=== PATIENT | female | born 1995 | race Caucasian/White ===

== ENCOUNTER → 2018-04-20 11:15 | Outpatient (CLI) | payer OTHER, SELFPAY ==
[2018-04-20 12:52] LABS: Internal QC Validated? YES +Cl - CLEAR BKGD; Monotest Negative (Negative); Record Kit Lot#, Mono 13171517
== END ==
PROVIDERS: Family Provider Student in an Organized Health Care Education/Training Program; PCP Student in an Organized Health Care Education/Training Program; Visit Provider Otolaryngology Otolaryngology/Facial Plastic Surgery
DX: J03.90 Acute tonsillitis, unspecified (principal)
CPT/HCPCS: 36415; 86308

== ENCOUNTER 2019-07-11 18:26 | Emergency (ER) | payer MEDICAID, SELFPAY ==
[2019-07-11 18:27] VITALS: BP 164/93; PULSE 99; RESP 16; TEMP 36.7; O2SAT 99; BMI 49.1
--- NOTE | 2019-07-11 18:29 | RAD_ITS ---
STUDY: X-RAY - RIGHT SHOULDER REASON FOR EXAM: Female, 24 years old. Pain TECHNIQUE: 4 view(s) of the shoulder. COMPARISON: None. FINDINGS: No acute fracture, dislocation or osseous destruction. No significant joint space narrowing. No significant productive changes. No significant soft tissue swelling. IMPRESSION: No acute fracture or dislocation right shoulder. Electronically Signed: Claude De La Cruz, at 19:07 EST Tel , Service support , RAD/Shoulder min 2 Views
--- NOTE | 2019-07-11 21:15 | ED.VIS.UPPEX ---
History of Present Illness Chief Complaint: Upper Extremity Injury Informant: Patient Occurred: Today - 4 hrs ago Mechanism/Context: Work Related Context: Sudden Onset Quality of Pain: Aching Location: posterior right shoulder/back Current Severity: Mild Maximum Severity: Moderate Worsened by: movement Relieved by: rest Associated Symptoms: Parasthesia. 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 She was doing a headache park today when she suddenly felt sharp pains in her right posterior back/trapezius/rhomboids area, and felt numbness all the way down her right arm into her hand. As time went on the numbness improved and is still present but much better than it was. It is in all of her fingers. She has had no weakness, has not dropped anything, she denies any direct trauma or other injury. No neck pain. No problems with her leg or anything on the left side. Prior similar symptoms: No Past Medical History - Allergies and Home Meds Allergies/Adverse Reactions: Allergies sulfamethoxazole [From Bactrim] Adverse Reaction (Verified 08/06/15 20:43) Nausea trimethoprim [From Bactrim] Adverse Reaction (Verified 08/06/15 20:43) Nausea Primary Care Physician: Felix Randall DO [Primary Care Provider] - Past Medical History: None Lives: With Family Smoking Status: Current every day smoker Review of Systems Musculoskeletal: Reports: Back pain, Extremity Pain. Denies: Neck pain, Swelling Neurological: Reports: Parasthesia. Denies: Headache, Weakness Physical Exam Vital Signs/Narrative: Vital Signs Temp Pulse Resp BP Pulse Ox 07/11/19 18:27 98.1 F 99 16 164/93 H 99 General: Well nourished, Well developed, - - Appearing, NAD Head: Normocephalic, Atraumatic Neck: Nontender, Full ROM Back: Paraspinal Tenderness - Right upper trapezius and rhomboids. No bony tenderness.. Negative for: Spinal Tenderness Skin: Normal color, No rash, No Trauma Neurological: Alert, Oriented x3, Cranial nerves II-XII grossly intact, Normal Strength - Including right upper extremity axillary, radial, median, ulnar nerves, including AIN/PIN branches., Normal Gait, Parasthesia - Throughout right hand. Normal cap refill. 2+/4 radial pulse. Psychological: Normal affect, Normal Mood Diagnostic/Tx/Re-eval - Medical Decision Making 4 view x-ray series of the right shoulder is interpreted by radiology as negative for any acute abnormality. She likely has a neuropraxia, I suspect his symptoms will resolve, in addition to a strain of the right trapezius. The etiology is either in her neck or her brachial plexus, I am not able to localize it since she has all fingers affected. She is given lifting restrictions and advised to follow-up with [facility]. ED Disposition - Plan for ED Patient: Disposition: Home or Assisted Living Diagnosis: Strain of right trapezius muscle, Neurapraxia of right upper extremity Instructions: Thoracic Strain, NEUROPATHY, Peripheral Referrals: [facility]YSICIANS] - (call for appt to be seen in 1-5 days ) Felix Randall, [Primary Care Provider] -
[2019-07-11 21:29] VITALS: RESP 14
[2019-07-11] MEDS: Naproxen 500 MG Tablet PO (21:29)
== END 2019-07-11 21:30 | disposition home or self-care (01) ==
LOC: ED 21:17
PROVIDERS: Emergency Provider Emergency Medicine; Family Provider Student in an Organized Health Care Education/Training Program; PCP Student in an Organized Health Care Education/Training Program
DX: S29.012A Strain of muscle and tendon of back wall of thorax, initial encounter (principal); S44.91XA Injury of unspecified nerve at shoulder and upper arm level, right arm, initial encounter; X50.0XXA Overexertion from strenuous movement or load, initial encounter; Y93.9 Activity, unspecified; Y92.63 Factory as the place of occurrence of the external cause; Y99.0 Civilian activity done for income or pay; F17.200 Nicotine dependence, unspecified, uncomplicated; Z88.1 Allergy status to other antibiotic agents; Z88.2 Allergy status to sulfonamides
CPT/HCPCS: 73030; 99283

== ENCOUNTER 2020-04-16 11:49 | Emergency (ER) | payer MEDICAID, SELFPAY ==
[2020-04-16 11:51] VITALS: BP 154/95; PULSE 98; RESP 16; TEMP 36.8; O2SAT 100; BMI 50.5
--- NOTE | 2020-04-16 12:07 | ED.DCSUM_ITS ---
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 She has had no known contact with persons affected with COVID-19, nor has she been diagnosed with it. She started with myalgias several days ago, then developed chills, sore throat with odynophagia, and feels malaise. She has a nonproductive cough that is mild. No dyspnea. Recent Illness/Hospitalization: No Past Medical History - Allergies and Home Meds Allergies/Adverse Reactions: Allergies sulfamethoxazole [From Bactrim] Adverse Reaction (Verified 04/16/20 11:51) Nausea trimethoprim [From Bactrim] Adverse Reaction (Verified 04/16/20 11:51) Nausea Primary Care Physician: Felix Randall DO [Primary Care Provider] - Past Medical History: None Smoking Status: Never smoker Review of Systems General: Reports: Chills, Malaise. Denies: Fever, Sweats Eyes: Denies: Visual changes - bilaterally, Diplopia ENT: Reports: Sore throat. Denies: Bilateral ear pain, Rhinorrhea Cardiovascular: Denies: Chest pain, Palpitations Respiratory: Reports: Cough. Denies: Dyspnea, Sputum, Dyspnea on exertion, Orthopnea Gastrointestinal: Denies: Abdominal pain, Nausea, Vomiting, Diarrhea, Melena, Hematochezia Genitourinary: Denies: Dysuria, Hematuria, Frequency Musculoskeletal: Reports: Myalgias, Neck pain - anterior. Denies: Back pain, Swelling Skin: Denies: Rash, Wounds Neurological: Denies: Headache, Weakness, Numbness Physical Exam Vital Signs/Narrative: Vital Signs Temp Pulse Resp BP Pulse Ox 04/16/20 11:51 98.2 F 98 16 154/95 H 100 Inital Vital Signs reviewed: Yes General: Well nourished, Well developed, Obese, - - well-appearing, nad Head: Normocephalic, Atraumatic Eyes: Perrl, EOMI Nose: Normal Inspection, No Rhinorrhea. Negative for: Purulent Drainage Mouth/Throat: Airway Patent, Posterior Oropharyngeal Erythema Tonsils: Right Tonsilar Erythema, Left Tonsilar Erythema. Negative for: Right Tonsilar Exudates, Left Tonsilar Exudates, Right Tonsilar Swelling, Left Tonsilar Swelling Neck: Supple, No Meningismus, Anterior Lymphadenopathy. Negative for: Posterior Lymphadenopathy Cardiovascular: Regular rate, Regular rhythm, No murmurs. Negative for: Tachyca rdia Respiratory: No distress, CTA bilaterally, Chest nontender Extremities: Nontender, No edema Skin: Normal color, No rash, No Trauma Neurological: Alert, Oriented x3, Cranial nerves II-XII grossly intact, Normal Strength, Normal Sensation, Normal Gait Psychological: Normal affect, Normal Mood Diagnostic/Tx/Re-eval - Medical Decision Making Rapid strep was sent and is negative. Culture is sent, I also sent an outpa tient COVID-19 swab. Her vital signs are normal and she is not hypoxic or need of inpatient or further work-up, so I would advise her to quarantine herself until the swab comes back, she was given a work note, and treated here with Toradol and Decadron. She understands and is comfortable with this overall plan. Viral etiologies that are not coronavirus are in the differential diagnosis as well as I discussed with her. ED Disposition - Plan for ED Patient: Disposition: Home or Assisted Living Diagnosis: Pharyngitis Instructions: ED Pharyngitis Viral Referrals: Felix Randall DO [Primary Care Provider] - As Needed Additional Instructions: You were tested for COVID-19, however it is sent to an offsite laboratory, and will likely take 3-5 days to come back. When the results return you should receive a call from the emergency department. Reference the pamphlet including with your discharge papers for information on setting up an online portal account to check the results yourself.
[2020-04-16] MEDS: dexAMETHasone 4 MG Tablet 8 MG PO (12:18)
[2020-04-16] MEDS: Ketorolac 30 MG/ML Syringe IM (12:18)
[2020-04-16 13:05] VITALS: BP 128/74; PULSE 92; RESP 16; O2SAT 99
--- NOTE | 2020-04-16 13:06 | ED.RN ---
pt provided with eportal pamphlet and [facility] lines for quarantine. she expressed understanding and gratitude. joão trotter rn [id number]
== END 2020-04-16 13:08 | disposition home or self-care (01) ==
PROVIDERS: Emergency Provider Emergency Medicine; PCP Student in an Organized Health Care Education/Training Program
DX: J02.9 Acute pharyngitis, unspecified (principal); Z88.1 Allergy status to other antibiotic agents; Z88.2 Allergy status to sulfonamides
CPT/HCPCS: 87635; 87880; 96372; 99284; U0003

== ENCOUNTER 2022-11-07 18:43 | Emergency (ER) | payer MEDICAID, SELFPAY ==
[2022-11-07 18:44] VITALS: BP 145/105; PULSE 94; RESP 14; TEMP 36.4; O2SAT 100; BMI 54.8
== END 2022-11-07 19:00 | disposition left against medical advice (07) ==
LOC: ED 19:13
PROVIDERS: PCP Student in an Organized Health Care Education/Training Program
DX: R10.9 Unspecified abdominal pain (principal)